=== PATIENT | female | born 1990 ===

== ENCOUNTER 2020-07-19 08:08 | Outpatient (REF) | payer OTHER, SELFPAY ==
[2020-07-20 09:46] LABS: BV Int Neg Control Negative (Negative); BV Int Pos Control Positive (Positive)
[2020-07-21 13:03] LABS: C. trachomatis RNA TMA NOT DETECTED; N. gonorrhoeae RNA TMA NOT DETECTED
[2020-07-24 09:57] LABS: HPV 16 RNA NOT DETECTED (NOT DETECTED); HPV mRNA E6/E7 rflx Detected (Not Detected)
== END 2020-07-19 08:09 | disposition home or self-care (01) ==
LOC: HO.LAB 08:08
PROVIDERS: PCP Internal Medicine; Visit Provider Advanced Practice Midwife
DX: Z01.419 Encounter for gynecological examination (general) (routine) without abnormal findings (principal); Z20.2 Contact with and (suspected) exposure to infections with a predominantly sexual mode of transmission; Z30.41 Encounter for surveillance of contraceptive pills
CPT/HCPCS: 87480; 87491; 87510; 87591; 87624; 87625; 87660; 88141; 88142

== ENCOUNTER → 2021-08-11 14:15 | Outpatient (BNVA) | payer OTHER, SELFPAY | PROVIDERS: Visit Provider Advanced Practice Midwife ==

== ENCOUNTER 2022-03-20 09:14 | Outpatient (REF) | payer OTHER, SELFPAY ==
[2022-03-20 11:19] LABS: MANUAL DIFF FLAG NO
[2022-03-20 11:29] LABS: Basophils Percent Auto 0.7 % (0-2); Eosinophils Absolute Auto 0.1 X10*3/uL (0.0-0.4); Eosinophils Percent Auto 1.6 % (0-4); Hemoglobin 13.3 g/dl (12.0-16.0); Imm Gran Abs Auto 0.01 X10*3/uL (0.00-0.03); Imm Gran Pct Auto 0.2 % (0.0-0.4); Lymphocytes Absolute Auto 1.6 X10*3/uL (1.2-4.9); Lymphocytes Percent Auto 36.7 % (20-40); Mean Corpuscular HGB Conc 33.3 g/dl (31.0-35.0); Mean Corpuscular Volume 87.3 fL (80.0-98.0); Mean Platelet Volume 11.5 fL (9.4-12.3); Monocytes Absolute Auto 0.4 X10*3/uL (0.1-1.2); Monocytes Percent Auto 8.7 % (2-11); Neutrophils Absolute Auto 2.3 x10*3/uL (2.0-8.3); Neutrophils Percent Auto 52.1 % (45-73); Platelet Count 239 X10*3/uL (160-400); Red Blood Count 4.58 X10*6/uL (4.20-5.50); Red Cell Distribution Width 12.5 % (11.0-16.0); White Blood Count 4.4 X10*3/uL (4.8-10.8)
[2022-03-20 11:58] LABS: Cholesterol 211 mg/dL; Glucose Fasting 99 mg/dL (60-99); HDL Cholesterol 102 mg/dL; LDL Cholesterol Calculated 97 mg/dl; Triglycerides 63 mg/dL
[2022-03-20 12:07] LABS: TSH reflex Free T4 0.42 uIU/mL (0.32-4.0)
== END 2022-03-20 09:15 | disposition home or self-care (01) ==
LOC: HO.HMGCLDS 09:14
PROVIDERS: PCP Internal Medicine; Visit Provider Internal Medicine
DX: Z00.00 Encounter for general adult medical examination without abnormal findings (principal); N92.1 Excessive and frequent menstruation with irregular cycle
CPT/HCPCS: 36415; 80061; 82947; 84443; 85025

== ENCOUNTER 2022-03-22 08:34 | Outpatient (REF) | payer OTHER, SELFPAY ==
[2022-03-23 08:41] LABS: CT PCR NOT DETECTED (Not Detect.); NG PCR NOT DETECTED (Not Detect.)
[2022-03-23 10:48] LABS: BV Int Neg Control Negative (Negative); BV Int Pos Control Positive (Positive)
[2022-03-27 10:12] LABS: HPV 16 RNA NOT DETECTED (NOT DETECTED); HPV mRNA E6/E7 rflx Detected (Not Detected)
== END 2022-03-22 08:35 | disposition home or self-care (01) ==
LOC: HO.LAB 08:34
PROVIDERS: Visit Provider Advanced Practice Midwife
DX: Z01.419 Encounter for gynecological examination (general) (routine) without abnormal findings (principal); N92.6 Irregular menstruation, unspecified; Z20.2 Contact with and (suspected) exposure to infections with a predominantly sexual mode of transmission
CPT/HCPCS: 87480; 87491; 87510; 87591; 87624; 87625; 87660; 88142

== ENCOUNTER 2022-05-10 11:32 | Outpatient (REF) | payer OTHER, SELFPAY ==
--- NOTE | ~2022-05-10 | US_ITS ---
EXAMINATION: US PELVIS CLINICAL INFORMATION: Irregular menstruation. COMPARISON: None. TECHNIQUE: Ultrasound of the pelvis is performed using both transabdominal and transvaginal transducers along with Doppler. Transvaginal imaging is performed due to inadequate visualization transabdominally. FINDINGS: The uterus is anteverted and measures 6.9 x 3.3 x 4.7 cm. There are 2 focal uterine lesions suggestive of fibroids measuring 1.8 x 1.7 x 1.8 cm in the anterior uterine body and 2.2 x 1.8 x 2 cm in the left upper uterine body or fundus/cornual region. There is a third 1 x 1.2 x 1.6 cm hypoechoic solid lesion in the left adnexa which appears to have a stalk that communicates with the left uterus questionable for a pedunculated fibroid. Differential would include left adnexal or fallopian tube lesion. Endometrial thickness measures 1.3 cm. The cervix is heterogeneous appearing with areas of shadowing. Clinical correlation i.e. has patient had a previous surgical procedure/LEEP procedure. The ovaries are normal appearing. The right ovary measures 1.9 x 1.3 x 1.5 cm. The left ovary measures 3.2 x 1.3 x 1.2 cm. There is a small amount of fluid in the pelvis. I US/US pelvic and transvaginal IMPRESSION: Uterine fibroids. 1 x 1.2 x 1.6 cm solid hypoechoic left adnexal lesion questionable for a pedunculated fibroid. Differential would include left adnexal or fallopian tube lesion. Heterogeneous appearance to the cervix, question postprocedural. Clinical correlation recommended.
== END 2022-05-10 11:33 | disposition home or self-care (01) ==
LOC: HO.US 11:32
PROVIDERS: Visit Provider Advanced Practice Midwife
DX: N92.6 Irregular menstruation, unspecified (principal)
CPT/HCPCS: 76830; 76856

== ENCOUNTER 2022-05-11 08:54 | Outpatient (REF) | payer OTHER, SELFPAY | END 2022-05-11 08:55 | disposition home or self-care (01) | LOC: HO.LNP 08:54 | PROVIDERS: PCP Internal Medicine; Visit Provider Obstetrics & Gynecology | DX: Z32.02 Encounter for pregnancy test, result negative (principal); A63.0 Anogenital (venereal) warts; B97.7 Papillomavirus as the cause of diseases classified elsewhere | CPT/HCPCS: 57454; 81025; 88305; 88342; 88360 ==

== ENCOUNTER → 2022-05-25 13:53 | Outpatient (BNVA) | payer OTHER, SELFPAY | PROVIDERS: PCP Internal Medicine; Visit Provider Obstetrics & Gynecology | DX: N87.0 Mild cervical dysplasia (principal) | CPT/HCPCS: 99212 ==

== ENCOUNTER → 2022-05-31 08:52 | Outpatient (BNVA) | payer OTHER, SELFPAY | PROVIDERS: PCP Internal Medicine; Visit Provider Advanced Practice Midwife | DX: Z71.2 Person consulting for explanation of examination or test findings (principal); D21.9 Benign neoplasm of connective and other soft tissue, unspecified; N92.6 Irregular menstruation, unspecified; Z30.41 Encounter for surveillance of contraceptive pills | CPT/HCPCS: 81025; 99212 ==

== ENCOUNTER 2022-07-12 13:59 | Outpatient (REF) | payer OTHER, SELFPAY ==
--- NOTE | ~2022-07-12 | US_ITS ---
EXAMINATION: US PELVIS CLINICAL INFORMATION: Reason for Exam D21.9 - Benign neoplasm of connective and other soft tissue, unspecified. Follow left adnexal lesion. COMPARISON: Previous exam April 2022 TECHNIQUE: Ultrasound of the pelvis is performed using both transabdominal and transvaginal transducers along with Doppler. Transvaginal imaging is performed due to inadequate visualization transabdominally. FINDINGS: The uterus is anteverted and measures 7.6 x 4.4 x 3.7 cm in dimension. Endometrial thickness measures 0.7 cm. There are 3 uterine fibroids. These fibroids measure 1.2 x 1.2 x 1 cm in the right upper uterine body or fundus adjacent to the endometrium, 1.5 cm in the left upper uterine body or fundus adjacent to the endometrium, and 0.5 x 0.5 x 0.4 cm in the anterior uterine body adjacent to the endometrium. There is stable heterogeneous appearance of the cervix with areas of shadowing and internal echoes in the endocervical canal. The right ovary measures 1.3 x 2.1 x 2 cm and is normal-appearing. The left ovary measures 1.3 x 2 x 1 cm. There is a 1.0 x 1.6 x 1.3 cm complex cystic lesion in the left adnexa in between the left side of the uterus and left ovary. This is slightly decreased from previous exam when this measured 1.8 x 1.7 x 1.8 cm and appears less solid and more cystic. There is no fluid in the pelvis. US/US pelvic and transvaginal IMPRESSION: Uterine fibroids. Heterogeneous appearance to the cervix similar to previous exam. Slight interval decrease in size in the now complex cystic left adnexal lesion measuring 1 x 1.6 x 1.3 cm compared to April 2022 exam.
== END 2022-07-12 14:00 | disposition home or self-care (01) ==
LOC: HO.US 13:59
PROVIDERS: Visit Provider Advanced Practice Midwife
DX: D21.9 Benign neoplasm of connective and other soft tissue, unspecified (principal)
CPT/HCPCS: 76830; 76856

== ENCOUNTER → 2022-09-26 11:08 | Outpatient (BNVA) | payer OTHER, SELFPAY | PROVIDERS: PCP Internal Medicine; Visit Provider Advanced Practice Midwife | DX: Z71.2 Person consulting for explanation of examination or test findings (principal); N83.292 Other ovarian cyst, left side; D25.9 Leiomyoma of uterus, unspecified; Z30.09 Encounter for other general counseling and advice on contraception | CPT/HCPCS: 99212 ==

== ENCOUNTER 2022-10-17 08:21 | Outpatient (REF) | payer OTHER, SELFPAY ==
--- NOTE | ~2022-10-17 | MR_ITS ---
EXAMINATION: MR PELVIS WITHOUT AND WITH CONTRAST CLINICAL INFORMATION: Left ovarian cyst. COMPARISON: Previous pelvic ultrasounds April and June 2022. TECHNIQUE: Sagittal, axial, and coronal sequences through the pelvis with and without contrast. Patient received 6.5 mL Gadavist IV contrast. FINDINGS: The uterus is anteverted and measures 6.8 x 3.5 x 4.9 cm in sagittal, AP, and transverse dimension. There are 2 focal low signal enhancing uterine lesions in the anterior fundus and uterine body measuring 1.9 x 2.5 x 2.0 and 1.6 cm suggestive of uterine fibroids. Endometrial thickness is normal measuring 2 mm. The junctional zone does not appear thickened. The cervix is normal appearing. The ovaries are normal. There is a 1.0 x 1.6 x 1.0 cm left adnexal lesion in between the uterus and left ovary. This is intermediate signal on T1-weighted sequences, low signal on T2-weighted sequences and demonstrates mild enhancement. Differential would include a pedunculated uterine fibroid, broad ligament fibroid and adnexal fibrous tumor. This is best appreciated coronal T2 image 16 series 7 and pre and postcontrast image #20 series 8 and 9. Trace fluid in the pelvis. Bladder is not optimally distended. Visualized bowel is normal. No ascites or adenopathy. No hernia. Normal bony structures. MR/MR pelvis wo/w con IMPRESSION: 1. Left 1.6 cm left adnexal lesion. Differential would include a pedunculated uterine fibroid, broad ligament fibroid and left adnexal fibrous tumor. 2. Uterine fibroids.
[2022-10-18 04:41] LABS: Syphilis Screen Nonreactive (Nonreactive)
[2022-10-18 05:56] LABS: HBc Num1 0.07 S/CO (0.00-0.79); HIV AB/AG Nonreactive (Nonreactive); HIV Num 1 0.06 S/CO (0.00-0.99); Hepatitis B Core Antibody Nonreactive (Nonreactive); ~HepC Num1 0.08 S/CO (0.00-0.79); ~Hepatitis C Antibody Nonreactive (Nonreactive)
[2022-10-19 11:54] LABS: CA-125 4 U/mL (<35)
== END 2022-10-17 08:22 | disposition home or self-care (01) ==
LOC: HO.MRI 08:21
PROVIDERS: PCP Internal Medicine; Visit Provider Advanced Practice Midwife
DX: N83.292 Other ovarian cyst, left side (principal); D25.9 Leiomyoma of uterus, unspecified; Z20.2 Contact with and (suspected) exposure to infections with a predominantly sexual mode of transmission
CPT/HCPCS: 36415; 72197; 86304; 86704; 86780; 86803; 87389; A9585

== ENCOUNTER → 2022-11-09 07:51 | Outpatient (BNVA) | payer OTHER, SELFPAY | PROVIDERS: PCP Internal Medicine; Visit Provider Advanced Practice Midwife | DX: Z71.2 Person consulting for explanation of examination or test findings (principal); R10.2 Pelvic and perineal pain; N94.89 Other specified conditions associated with female genital organs and menstrual cycle | CPT/HCPCS: 99212 ==

== ENCOUNTER 2023-02-14 13:42 | Outpatient (REF) | payer OTHER, SELFPAY ==
--- NOTE | ~2023-02-14 | US_ITS ---
EXAMINATION: US PELVIS CLINICAL INFORMATION: Complex ovarian cyst COMPARISON: Pelvic ultrasound 07/12/2022, pelvic ultrasound 05/10/2022, MRI pelvis 10/17/2022 TECHNIQUE: Ultrasound of the pelvis is performed using both transabdominal and transvaginal transducers along with Doppler. Transvaginal imaging is performed due to inadequate visualization transabdominally. FINDINGS: Uterus: The uterus is anteverted and measures 6.7 x 4.2 x 5.5 cm. There are multiple fibroids includin.7 x 1.7 x 1.4 cm right anterior fundal fibroid (previously 1.2 x 1.2 x 1.0 cm). 1.5 x 1.5 x 1.4 cm left fundal fibroid (previously measured 1.5 x 1.5 x 1.5 cm). 1.4 x 1.2 x 2.0 cm pedunculated fibroid to the left of the uterus (previously measured 1.0 x 1.6 x 1.3 cm). 0.6 x 0.6 x 0.6 cm anterior fibroid adjacent to the endometrium (previously measured 0.5 x 0.5 x 0.4 cm). The endometrial thickness is 0.6 mm. The endometrial stripe is displaced by fibroids. Adnexa: Right ovary measures 2.5 x 1.5 x 1.6 cm. Volume 0.1 mL. The right ovary contains a 1.3 x 1.3 x 1.4 cm simple cyst. This is benign and no follow-up imaging is recommended. The left ovary is not seen. No free fluid within the cul-de-sac. US/US pelvic and transvaginal IMPRESSION: 1. Uterine fibroids. 2. 2.0 cm pedunculated fibroid to the left of the uterus. This has been previously been described as a left adnexal lesion. 3. Normal right ovary. 4. Left ovary is not seen.
== END 2023-02-14 13:43 | disposition home or self-care (01) ==
LOC: HO.US 13:42
PROVIDERS: PCP Internal Medicine; Visit Provider Obstetrics & Gynecology Gynecologic Oncology
DX: N83.209 Unspecified ovarian cyst, unspecified side (principal)
CPT/HCPCS: 76830; 76856

== ENCOUNTER 2023-03-28 08:20 | Outpatient (AMB) | payer OTHER, SELFPAY ==
--- NOTE | 2023-03-28 08:20 | MHC.OFFVIS ---
Intake Vital Signs 03/28/23 08:21 Height 5 ft 2 in Weight 146 lb BMI 26.7 BP 114/76 Intake Visit Reasons: Annual Intake Note: The patient agreed to use of a medical coding auditor during this encounter. Scribed for MAULIK Cantu by Mikayla Sarabia medical coding auditor, on 03/28/2023 at 8:37am EST. Enforcement Officer: Enforcement Officer Present (Mary) Allergies No Known Allergies Allergy (Verified 03/28/23 08:21) Is last menstrual period known: Yes Last menstrual period: 03/26/23 HPI HPI Comments History of Present Illness Details She is a premenopausal woman presenting for annual exam. She admits to eating healthy and tries to stay active with exercise. Currently not sexually active. She was on Jolessa for cycle control but stopped due to insurance issues and now wants to take a break and see what happens. She is also not worried about and plans to go back onto them if becomes sexually active. Hx of of HMB with cramping. Reports break through bleeding every 2 weeks with last BC. Denies vaginal itching and irritation. STD screening offered; she declines. Denies family hx of breast, colon and ovarian cancer. Reports Rocky repeated her pap during the consult for the pelvic mass. Pap results are not available today. She denies any contraindications to control such as: migraines with aura, history of DVT or pulmonary emboli, high blood pressure, liver disease, thrombolic disorders, Lupus, +LILI, or smoking. [facility] Medical History (Updated 03/28/23 @ 12:16 by Shannon Fleming CNM) Migraine without aura Uterine fibroid Surgical History No pertinent past surgical history Family History Father High cholesterol Mother Type 2 diabetes mellitus Sister No problems noted. Sister No problems noted. Sister No problems noted. 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 [employer] Sexual orientation: Straight/Heterosexual Gender identity: Female Cognitive needs: No Hearing needs: No Vision needs: No Female Reproductive History Menstrual Age of Menarche: 11 Duration of menses: 3-5 days Date of last menstrual period: 03/26/23 Total pregnancies: 0 Date of last pap smear: 03/22/22 (+hpv) History of abnormal pap smear: Yes (07/18 +hpv 05/20 colpo LG 1) Physical Exam Vital Signs: Last Vital Signs BP 114/76 03/28/23 08:21 BMI result Body Mass Index 26.7 Const General: cooperative, healthy appearing, no acute distress, well developed and alert Orientation/consciousness: patient oriented x3 HEENT Head: Yes normal to inspection Eyes General: appearance normal, both eyes and all related structures Neck Neck: Yes normal visual inspection Thyroid: Thyroid normal Chest Chest palpation & inspection: normal inspection of the chest Breast/axilla inspection: normal inspection of the breasts (no puckering, dimpling, peau de orange, retraction, discharge, masses) Breast/axilla palpation: normal palpation of the breasts Resp Effort & Inspection: normal respiratory effort GI Inspection: Yes normal to inspection Palpation (GI): Soft to palpation (to palpation) Rectal Exam - Female: deferred General: Yes bladder normal to inspection External Female Exam: normal external appearance and normal appearance of the urethra Speculum Exam - Vagina: normal appearance of the vagina, normal palpation and normal vaginal discharge Speculum Exam - Cervix: normal appearance of the cervix and normal palpation Bimanual exam- vagina & uterus: normal palpation and normal palpation Bimanual Exam- Adnexa, other: normal adnexae and no masses Skin General skin exam: no rashes or lesions noted Neuro General: patient oriented x3 Cognition (Neuro): normal cognition Extrem General: Yes normal to inspection Psych Attitude: cooperative Thought process: Normal thought process present Results Reviewed Results Reviewed: EXAMINATION:? US PELVIS CLINICAL INFORMATION:? Complex ovarian cyst COMPARISON: Pelvic ultrasound 07/12/2022, pelvic ultrasound 05/10/2022, MRI pelvis 10/17/2022 TECHNIQUE: Ultrasound of the pelvis is performed using both transabdominal and transvaginal transducers along with Doppler. Transvaginal imaging is performed due to inadequate visualization transabdominally. FINDINGS: Uterus: The uterus is anteverted and measures 6.7 x 4.2 x 5.5 cm.? There are multiple fibroids includin.7 x 1.7 x 1.4 cm right anterior fundal fibroid (previously 1.2 x 1.2 x 1.0 cm). 1.5 x 1.5 x 1.4 cm left fundal fibroid (previously measured 1.5 x 1.5 x 1.5 cm). 1.4 x 1.2 x 2.0 cm pedunculated fibroid to the left of the uterus (previously measured 1.0 x 1.6 x 1.3 cm). 0.6 x 0.6 x 0.6 cm anterior fibroid adjacent to the endometrium (previously measured 0.5 x 0.5 x 0.4 cm). The endometrial thickness is 0.6 mm. The endometrial stripe is displaced by fibroids. Adnexa: Right ovary measures 2.5 x 1.5 x 1.6 cm. Volume 0.1 mL. The right ovary contains a 1.3 x 1.3 x 1.4 cm simple cyst. This is benign and no follow-up imaging is recommended. The left ovary is not seen. No free fluid within the cul-de-sac. US/US pelvic and transvaginal IMPRESSION: ? 1. Uterine fibroids. 2. 2.0 cm pedunculated fibroid to the left of the uterus. This has been previously been described as a left adnexal lesion. 3. Normal right ovary. 4. Left ovary is not seen. Assessment & Plan Assessment & Plan (1) Encounter for well woman exam: Code(s): Z01.419 - Encounter for gynecological examination (general) (routine) without abnormal findings Plan: Discussed: Current recommendations for pap smears per ASCCP guidelines Breast awareness and periodic self breast exams. Maintaining a healthy lifestyle including a well balanced diet and routine exercise. Encouraged to use condoms for STD and prevention if become sexually active. Encouraged patient to sign up for patient portal. All of her questions and concerns were addressed to the best of my ability. RTO in one year for AG. (2) Encounter to discuss test results: Code(s): Z71.2 - Person consulting for explanation of examination or test findings Plan: Discussed: US findings of: multiple uterine fibroids. All of her questions and concerns were addressed to the best of my ability. (3) Uterine fibroid: Code(s): D25.9 - Leiomyoma of uterus, unspecified Plan: Leiomyoma: common pelvic neoplasm. Differential diagnosis-may include leiomyosarcoma which is a rare uterine sarcoma 3-7/100,000, difficult to distinguish from fibroids on ultrasound from uterine sarcoma's. Unlikely any single test will have a highly positive predictive value. Hysterectomy is not recommended for sole purpose of excluding malignant neoplasm. Report any PMB/AUB, pelvic pressure, bloating, or pain. Consult for surgical exploration verses expectant management offered. Expectant management follow up in 6 months, then yearly for stability. (4) Encounter for surveillance of contraceptive pills: Code(s): Z30.41 - Encounter for surveillance of contraceptive pills Plan: Rx ordered. She was instructed to go to ER if she develops loss of vision, severe headache that does not resolve, chest pain, difficulty breathing, abdominal pain, or pain or tenderness in extremity. Call the office with any concerns. Medications: Refilled levonorgestrel-ethinyl estrad 0.15 mg-30 mcg (91) (Jolessa) 1 tab PO DAILY 91 ea 4RF Coding Level of Care Code Est Pt Prev Care 18-39y(16237) Diagnoses Encounter for well woman exam Z01.419 Encounter to discuss test results Z71.2 Uterine fibroid D25.9 Encounter for surveillance of contraceptive pills Z30.41
[2023-03-28 08:21] VITALS: BP 114/76; BMI 26.7
== END 2023-03-28 09:04 | disposition home or self-care (01) ==
LOC: HO.HWS 08:20
PROVIDERS: PCP Internal Medicine; Visit Provider Advanced Practice Midwife
DX: Z01.419 Encounter for gynecological examination (general) (routine) without abnormal findings (principal); Z71.2 Person consulting for explanation of examination or test findings; D25.9 Leiomyoma of uterus, unspecified; Z30.41 Encounter for surveillance of contraceptive pills
CPT/HCPCS: 99395

== ENCOUNTER → 2023-03-28 08:20 | Outpatient (BNVA) | payer OTHER, SELFPAY | PROVIDERS: PCP Internal Medicine; Visit Provider Advanced Practice Midwife ==

== ENCOUNTER 2023-04-03 08:04 | Outpatient (AMB) | payer OTHER, SELFPAY ==
[2023-04-03 08:06] VITALS: BP 122/70; PULSE 54; O2SAT 96; BMI 26.9
--- NOTE | 2023-04-03 08:06 | MHC.PC.OV ---
Vital Signs 04/03/23 08:06 Height 5 ft 2 in Weight 147 lb BMI 26.9 BP 122/70 Blood Pressure Location Rt brachial Position Sitting Pulse 54 Pulse Oximetry (%) 96 Oxygen Delivery Method Room Air Intake Visit Reasons: PE Intake Note: Patient is here today for PE Is last menstrual period known: Yes Last menstrual period: 03/26/23 Allergies No Known Allergies Allergy (Verified 04/03/23 08:24) Medication List - Last Reconciled 04/03/23 by Ryann Alvares MD cetirizine (All Day Allergy (cetirizine)) 10 mg PO DAILY PRN Tobacco use date assessed: 04/03/23 Dental Screening Dental Screen Date: 04/03/23 Did you have a dental visit in the last 12 months?: Yes Did you have a dental problem in the last 6 months where you did not have access to dental care?: Yes Was dental information given to patient?: Patient has dentist HPI PE HPI Details 33-year-old lady here today for physical exam. She is currently goes to [facility] for her routine Pap and pelvic exam, and has been referred to [facility] for her uterine fibroids and patient states she had her Pap done recently there with normal findings. She previously was placed on control pills to control her bleeding from her fibroids, but this was not very helpful, currently not on any medication at this time. Still having heavy menstrual bleed. Otherwise, she has been feeling well . She gets her flu vaccine from her work, gets it every year, and states that she also had her COVID booster recently, as well as her Tdap prior to going to school. [facility] Medical History (Updated 04/03/23 @ 08:44 by Ryann Alvares MD) Dysplasia of cervix, low grade (LG 1) HPV (human papilloma virus) infection Migraine without aura Seasonal allergies Uterine fibroid Surgical History No pertinent past surgical history Family History Father High cholesterol Mother Type 2 diabetes mellitus Sister No problems noted. Sister No problems noted. Sister No problems noted. 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 1. Little interest or pleasure in doing things: not at all 2. Feeling down, depressed, or hopeless: not at all 3. Trouble falling or staying asleep, or sleeping too much: not at all 4. Feeling tired or having little energy: several days 5. Poor appetite or overeating: not at all 6. Feeling bad about yourself - or that you are a failure or have let yourself or your family down: not at all 7. Trouble concentrating on things, such as reading the newspaper or watching television: not at all 8. Moving or speaking so slowly that other people could have noticed. Or the opposite - being so fidgety or restless that you have been moving around a lot more than usual: not at all 9. Thoughts that you would be better off or of hurting yourself in some way: not at all Total score: 1 Depression Screening Interpretation: Negative 88692 - PHQ-9 Billing: Yes Source: Developed by Drs. Dwayne Santiago, Stephanie Larose, López King and colleagues, with an educational shira from [employer]. Thrive Questionnaire Date Thrive assessed: 04/03/23 I am a: Patient What is your living situation today?: I have a steady place to live Within the past 12 months, did the food you bought not last and you didn't have the money to get more?: Never true Within the past 12 months, did you worry whether your food would run out before you got money to buy more?: Never true Do you have trouble paying for medicines?: No Do you have trouble getting transportation to medical appointments?: No Do you have trouble paying your heating and electricity bill?: No Do you have trouble taking care of your child, family member or friend?: No Do you have trouble with day-to-day activities such as bathing, preparing meals, shopping, managing finances, etc.?: No Are you currently unemployed and looking for a job?: No Are you interested in more education?: Yes Please select the resources that you would like help with: Education CED-7 AMB Questionnaire CED-7 Date CED - 7 assessed: 04/03/23 Feeling nervous, anxious, or on edge: 0 = Not at all Not being able to stop or control worryin = Not at all Worrying too much about different things: 1 = Several days Trouble relaxin = Not at all Being so restless that it is hard to sit still: 0 = Not at all Becoming easily annoyed or irritable: 0 = Not at all Feeling afraid as if something awful might happen: 0 = Not at all Total CED-7 score (0-4 normal; 5-9 mild; 10-14 moderate; 15-21 severe): 1 Source: Developed by Drs. Dwayne Santiago, Stephanie Larose, López King and colleagues, with an educational shira from [employer]. CED-7 Assessment Billing CED-7 Assessment Tool: CED-7 Assessment 49232 Review of Systems Const Denies body aches, Denies fatigue, Denies fever(s) and Denies weakness Eyes Denies change in vision, Denies eye discharge and Denies itchy eyes ENT Denies dizziness, Denies nasal congestion, Denies nasal discharge and Denies sore throat Card Denies chest pain, Denies lightheadedness, Denies palpitations and Denies dyspnea Resp Denies chest congestion, Denies cough, Denies dyspnea and Denies wheezing GI Denies abdominal pain, Denies change in bowel habits and Reports heartburn (Occasional with eating spicy food, takes Tums as needed) Reports as per HPI, Denies hematuria, Denies urinary frequency, Denies dysuria, Denies urinary urgency and Denies vaginal discharge Musc Reports no additional complaints Skin/Breast Denies breast pain, Denies breast mass, Denies lesions and Denies rash Neuro Reports as per HPI, Denies dizziness and Denies weakness Psych Reports no additional complaints Endo Denies fatigue, Denies polydipsia, Denies polyuria and Denies palpitations Tomasz/Lymph Denies easy bruising Aller/Immun Denies itchy eyes, Reports seasonal rhinorrhea (Takes cetirizine as needed) and Denies wheezing Physical exam (Primary Care) Vital Signs: Last Vital Signs Pulse 54 04/03/23 08:06 BP 122/70 04/03/23 08:06 Pulse Ox 96 04/03/23 08:06 Oxygen Delivery Method Room Air 04/03/23 08:06 BMI result Body Mass Index 26.9 Tobacco/Smoking Status: Tobacco use Status Tobacco use date assessed 04/03/23 04/03/23 08:19 Patient Tobacco Use Status Never used Tobacco 04/03/23 08:09 e-Cigarette/Vaping Use Currently Using 04/03/23 08:19 PHQ-9: PHQ-9 Score PHQ-9: Total score 1 04/03/23 08:32 Depression Screening Interpretation: Negative Thrive Assessment: Date of Thrive Assessment Date Thrive assessed 04/03/23 04/03/23 08:22 Const General: healthy appearing, comfortable and no acute distress Nutritional Appearance: average body habitus Orientation/consciousness: patient oriented x3 Limitations: no limitations HENMT Head: Yes normocephalic Ears: hearing grossly normal bilaterally, TM's normal bilaterally and EAC's normal General nose exam: Normal external nose present Face and sinus: Yes normal facial exam and Yes face symmetric Mouth: Normal oral and palatal mucosa present, tongue normal, oropharynx normal and moist mucous membranes Eyes General: appearance normal, both eyes and all related structures Neck Neck: Yes full ROM, Yes no lymphadenopathy and Yes supple Thyroid: Thyroid normal Chest Chest palpation & inspection: normal inspection of the chest Breast/axilla inspection: normal inspection of the breasts (Bilateral nipple rings) Breast/axilla palpation: normal palpation of the breasts Resp Effort & Inspection: normal respiratory effort and able to speak in complete sentences Auscultation: clear to auscultation bilaterally Cardio Palpation: normal PMI Rate: regular rate Rhythm: regular rhythm Heart sounds: S1 normal heart sound present and S2 normal heart sound present GI Inspection: Yes normal to inspection Palpation (GI): Soft to palpation, nontender, no guarding, no hepatomegaly and no masses Percussion: Yes normal to percussion Auscultation: normal bowel sounds General: Yes no CVA tenderness and Yes deferred Back/Spine/Pelvis Back: no CVA tenderness Cervical Spine: normal cervical lordosis Thoracic/Lumbar Spine: thoracic and lumbar spine normal to inspection Skin General skin exam: no rashes or lesions noted Neuro General: patient oriented x3, gait normal, tone normal, moves all extremities, Normal light touch and pain sensation, no focal motor deficits and CN's II-XI intact bilaterally Cognition (Neuro): normal cognition Gait exam (Neuro): Normal gait present Extrem General: Yes normal to inspection, Yes full ROM, Yes no joint enlargement, Yes no pedal edema and Yes normal gait Psych Appearance: grossly normal and well kempt Mental Status: mental status grossly normal Speech and movement: Normal speech and movement present Affect: normal affect Attitude: cooperative Thought process: Normal thought process present Assessment and Plan Assessment & Plan (1) Uterine fibroid: Code(s): D25.9 - Leiomyoma of uterus, unspecified Plan: Currently followed by [facility] (2) Seasonal allergies: Code(s): J30.2 - Other seasonal allergic rhinitis Plan: Takes cetirizine as needed (3) Annual visit for general adult medical examination with abnormal findings: Code(s): Z00.01 - Encounter for general adult medical examination with abnormal findings Plan: Will check appropriate labs. Recommended dental visit every 6 months and regular eye exams, at least every 2 years. Take adequate calcium in diet and vitamin-D 3 at 2000 IU per cap once a day, in addition to weight-bearing exercises to help maintain good muscle tone and weight control. Instructed to do self-breast exam, and recommended to get yearly mammogram, starting at age 40. Patient states that she is up-to-date with her COVID vaccine including her booster, gets her flu shot at work, and states that she is already had her Tdap prior to going to school. (4) Heavy menstrual bleeding: Code(s): N92.0 - Excessive and frequent menstruation with regular cycle Plan: Will check CBC, currently being followed by OBGYN Orders: Orders Complete Blood Count Auto Diff Today D25.9 - Leiomyoma of uterus, unspecified Alanine Aminotransferase Today D25.9 - Leiomyoma of uterus, unspecified, J30.2 - Other seasonal allergic rhinitis, N92.0 - Excessive and frequent menstruation with regular cycle, Z00.01 - Encounter for general adult medical examination with abnormal findings Aspartate Amino Transferase Today D25.9 - Leiomyoma of uterus, unspecified, J30.2 - Other seasonal allergic rhinitis, N92.0 - Excessive and frequent menstruation with regular cycle, Z00.01 - Encounter for general adult medical examination with abnormal findings Basic Metabolic Panel Fasting Today D25.9 - Leiomyoma of uterus, unspecified, J30.2 - Other seasonal allergic rhinitis, N92.0 - Excessive and frequent menstruation with regular cycle, Z00.01 - Encounter for general adult medical examination with abnormal findings Hemoglobin A1c Today D25.9 - Leiomyoma of uterus, unspecified, J30.2 - Other seasonal allergic rhinitis, N92.0 - Excessive and frequent menstruation with regular cycle, Z00.01 - Encounter for general adult medical examination with abnormal findings Lipid Panel Today D25.9 - Leiomyoma of uterus, unspecified, J30.2 - Other seasonal allergic rhinitis, N92.0 - Excessive and frequent menstruation with regular cycle, Z00.01 - Encounter for general adult medical examination with abnormal findings Vitamin D 25-OH Total Today D25.9 - Leiomyoma of uterus, unspecified, J30.2 - Other seasonal allergic rhinitis, N92.0 - Excessive and frequent menstruation with regular cycle, Z00.01 - Encounter for general adult medical examination with abnormal findings Coding Level of Care Code Est Pt Prev Care 18-39y(67753) Diagnoses Uterine fibroid D25.9 Seasonal allergies J30.2 Annual visit for general adult medical examination with abnormal findings Z00.01 Heavy menstrual bleeding N92.0 Additional Codes CED-7 Assessment Billing - CED-7 Assessment Tool: CED-7 Assessment 07115 ([id number])
== END 2023-04-03 09:55 | disposition home or self-care (01) ==
PROVIDERS: Visit Provider Internal Medicine
DX: D25.9 Leiomyoma of uterus, unspecified (principal); J30.2 Other seasonal allergic rhinitis; Z00.01 Encounter for general adult medical examination with abnormal findings; N92.0 Excessive and frequent menstruation with regular cycle
CPT/HCPCS: 99395

== ENCOUNTER 2023-04-03 08:42 | Outpatient (REF) | payer OTHER, SELFPAY ==
[2023-04-03 11:20] LABS: MANUAL DIFF FLAG NO
[2023-04-03 11:26] LABS: Basophils Percent Auto 0.2 % (0-2); Eosinophils Absolute Auto 0.1 X10*3/uL (0.0-0.4); Eosinophils Percent Auto 1.3 % (0-4); Hemoglobin 12.2 g/dl (12.0-16.0); Imm Gran Abs Auto 0.01 X10*3/uL (0.00-0.03); Imm Gran Pct Auto 0.2 % (0.0-0.4); Lymphocytes Absolute Auto 1.5 X10*3/uL (1.2-4.9); Lymphocytes Percent Auto 28.8 % (20-40); Mean Corpuscular Hemoglobin 29.5 pg (27.0-33.0); Mean Corpuscular Volume 89.4 fL (80.0-98.0); Mean Platelet Volume 11.5 fL (9.4-12.3); Monocytes Absolute Auto 0.4 X10*3/uL (0.1-1.2); Monocytes Percent Auto 7.8 % (2-11); Neutrophils Absolute Auto 3.3 x10*3/uL (2.0-8.3); Neutrophils Percent Auto 61.7 % (45-73); Platelet Count 211 X10*3/uL (160-400); Red Blood Count 4.14 X10*6/uL (4.20-5.50); Red Cell Distribution Width 12.5 % (11.0-16.0); White Blood Count 5.3 X10*3/uL (4.8-10.8)
== END 2023-04-03 08:43 | disposition home or self-care (01) ==
LOC: HO.HMGCLDS 08:42
PROVIDERS: PCP Internal Medicine; Visit Provider Internal Medicine
DX: D25.9 Leiomyoma of uterus, unspecified (principal)
CPT/HCPCS: 36415; 85025

== ENCOUNTER → 2024-04-23 08:06 | Outpatient (BNVA) | payer OTHER, SELFPAY | PROVIDERS: PCP Internal Medicine; Visit Provider Advanced Practice Midwife ==

== ENCOUNTER 2024-04-29 07:42 | Outpatient (AMB) | payer OTHER, SELFPAY ==
--- NOTE | 2024-04-29 07:49 | A.OFFVIS_ITS ---
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 Doing well with concerns: History of fibroids, felt she has gained weight in her lower abdomen, also reports her cycles can be closer anywhere from Q 21-28 days. Not on control uses withdrawal method. Considering a future in a year or 2. Recently treated for yeast infection feels her symptoms improved. She tries to eat healthy and stays active with exercise. Currently is sexually active. She denies vaginal itching and irritation. STI screening offered; she accepts. Denies family history of breast, ovarian or colon cancer. Last pap smear LG 1 on biopsy history of HPV positive. [facility] Medical History Seasonal allergies Uterine fibroid Dysplasia of cervix, low grade (LG 1) HPV (human papilloma virus) infection Migraine without aura Surgical History No pertinent past surgical history Family History Father High cholesterol Mother Type 2 diabetes mellitus Sister No problems noted. Sister No problems noted. Sister No problems noted. 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[employer] Sexual orientation: Straight/Heterosexual Gender identity: Female Cognitive needs: No Hearing needs: No Vision needs: No Female Reproductive History Menstrual Age of Menarche: 11 Date of last menstrual period: 04/23/24 control method: none Total pregnancies: 0 Date of last pap smear: 03/22/22 (+hpv) History of abnormal pap smear: Yes (07/18 +hpv 05/20 colpo lg 1) Review of Systems Const All systems reviewed & are unremarkable except as noted in HPI and below Reports as per HPI Eyes Reports no additional complaints ENT Reports no additional complaints Card Reports no additional complaints Resp Reports no additional complaints GI Reports as per HPI and Reports no additional complaints Reports as per HPI Musc Reports no additional complaints Skin/Breast Reports as per HPI Neuro Reports no additional complaints Psych Reports no additional complaints Endo Reports no additional complaints Tomasz/Lymph Reports no additional complaints Aller/Immun Reports no additional complaints Physical Exam Vital Signs: Last Vital Signs BP 100/60 04/29/24 07:50 BMI result Body Mass Index 26.9 Const General: cooperative, healthy appearing, no acute distress, well developed and alert Orientation/consciousness: patient oriented x3 HEENT Head: Yes normal to inspection Eyes General: appearance normal, both eyes and all related structures Neck Neck: Yes normal visual inspection Thyroid: Thyroid normal Chest Chest palpation & inspection: normal inspection of the chest and other (no puckering, dimpling, peau de orange, retraction, discharge, masses) Breast/axilla inspection: normal inspection of the breasts Breast/axilla palpation: normal palpation of the breasts Resp Effort & Inspection: normal respiratory effort GI Inspection: Yes normal to inspection Palpation (GI): Soft to palpation Rectal Exam - Female: deferred General: Yes bladder normal to palpation External Female Exam: normal external appearance and normal appearance of the urethra Speculum Exam - Vagina: normal appearance of the vagina, normal palpation and normal vaginal discharge Speculum Exam - Cervix: normal appearance of the cervix, normal palpation and Other cervical findings present (Bled with Pap) Bimanual exam- vagina & uterus: normal bimanual exam, normal palpation, uterine size normal, bladder normal to palpation, normal palpation and non-tender Bimanual Exam- Adnexa, other: no masses Skin General skin exam: no rashes or lesions noted Rashes: no rashes Neuro General: patient oriented x3 Cognition (Neuro): normal cognition Extrem General: Yes normal to inspection Psych Attitude: cooperative Thought process: Normal thought process present Assessment & Plan Assessment & Plan (1) Encounter for well woman exam with routine gynecological exam: Code(s): Z01.419 - Encounter for gynecological examination (general) (routine) without abnormal findings Category: Medical (2) Uterine fibroid: Code(s): D25.9 - Leiomyoma of uterus, unspecified Category: Medical Qualifiers: Uterine leiomyoma location: unspecified location Qualified Code(s): D25.9 - Leiomyoma of uterus, unspecified (3) Possible exposure to STD: Code(s): Z20.2 - Contact with and (suspected) exposure to infections with a predominantly sexual mode of transmission Plan Discussed: Current recommendations for pap smears per ASCCP guidelines. Breast awareness and periodic breast exams. Maintain a healthy lifestyle including a well balanced diet and routine exercise. Initiate vitamins or multivitamin with folic acid benefits reviewed for prevention of neural tube defects. Monitor menses if consistent under 21 days of bleeding or any unscheduled bleeding, prolonged bleeding to report to the office sooner. Fibroid general information provided w/use of diagrams today. Plan follow up ultrasound to check fibroids stability, follow up in person to discuss results and plan of care. Patient verbalizes understanding and agrees to the plan of care. She was given opportunity to ask questions and all questions were answered to the best of my ability. RTO in one year for annual clinic md associate examination. This note is constructed using voice recognition software. While every effort has been made to ensure accuracy, hearing officer errors may have been included. Orders: Orders US pelvic and transvaginal Today D25.9 - Leiomyoma of uterus, unspecified Syphilis Screen Today Z20.2 - Contact with and (suspected) exposure to infections with a predominantly sexual mode of transmission HIV Ab/Ag Today Z20.2 - Contact with and (suspected) exposure to infections with a predominantly sexual mode of transmission Hepatitis C Antibody Reflex Today Z20.2 - Contact with and (suspected) exposure to infections with a predominantly sexual mode of transmission Hepatitis B Core Antibody Today Z20.2 - Contact with and (suspected) exposure to infections with a predominantly sexual mode of transmission Coding Level of Care Code Est Pt Prev Care 18-39y(34785) Diagnoses Encounter for well woman exam with routine gynecological exam Z01.419 Uterine leiomyoma, unspecified location D25.9 Uterine leiomyoma location: unspecified location Possible exposure to STD Z20.2
[2024-04-29 07:50] VITALS: BP 100/60; BMI 26.9
== END 2024-04-29 08:24 | disposition home or self-care (01) ==
PROVIDERS: PCP Internal Medicine; Visit Provider Advanced Practice Midwife
DX: Z01.419 Encounter for gynecological examination (general) (routine) without abnormal findings (principal); D25.9 Leiomyoma of uterus, unspecified; Z20.2 Contact with and (suspected) exposure to infections with a predominantly sexual mode of transmission
CPT/HCPCS: 99395

== ENCOUNTER 2024-04-29 07:42 | Outpatient (REF) | payer OTHER, SELFPAY ==
[2024-04-29 15:18] LABS: CT PCR NOT DETECTED (Not Detect.); NG PCR NOT DETECTED (Not Detect.)
[2024-04-29 15:48] LABS: Bacterial Vaginosis PCR POSITIVE (Negative); Candida Group PCR DETECTED (Not Detect); Candida glab krusei PCR NOT DETECTED (Not Detect); Trichomonas vaginalis PCR NOT DETECTED (Not Detect)
[2024-05-03 04:19] LABS: HPV 16 RNA NOT DETECTED (NOT DETECTED); HPV mRNA E6/E7 Detected (Not Detected)
== END 2024-04-29 07:43 | disposition home or self-care (01) ==
LOC: HO.LNP 07:42
PROVIDERS: PCP Internal Medicine; Visit Provider Advanced Practice Midwife
DX: Z01.419 Encounter for gynecological examination (general) (routine) without abnormal findings (principal); D25.9 Leiomyoma of uterus, unspecified; Z20.2 Contact with and (suspected) exposure to infections with a predominantly sexual mode of transmission
CPT/HCPCS: 0352U; 87491; 87591; 87624; 87625; 88175; 99395

== ENCOUNTER 2024-04-29 08:51 | Outpatient (REF) | payer OTHER, SELFPAY | END 2024-04-29 08:52 | disposition home or self-care (01) | LOC: HO.LAB 08:51 | PROVIDERS: Visit Provider Advanced Practice Midwife | DX: Z13.89 Encounter for screening for other disorder (principal) ==

== ENCOUNTER 2024-05-08 14:39 | Outpatient (REF) | payer OTHER, SELFPAY ==
--- NOTE | ~2024-05-08 | US_ITS ---
EXAMINATION:US PELVIS TRANSABDOMINAL AND TRANSVAGINAL CLINICAL INFORMATION: D25.9 - Leiomyoma of uterus, unspecified COMPARISON: Prior ultrasound from 2022 LMP: April 30, 2024 FINDINGS: UTERUS: The uterus is anteverted. Size: 7 x 3.9 x 3.8 cm. Uterine mass: Intramural uterine masses likely fibroids measuring up to 1.6 cm, 1.7 cm, 0.6 cm, have not significantly changed from prior exam allowing for interobserver variability. Cervix: Grossly unremarkable. Endometrium: No ultrasound evidence of endometrial lesion. endometrial thickness measures 0.9 cm ADNEXA: Normal Right ovary: Normal in size. Left ovary: Normal in size. There are ovarian follicles the largest on the left probably hemorrhagic cyst or involuting follicle 1.9 cm. Doppler exam: Normal Doppler flow identified in both ovaries. FREE FLUID: Trace amount of free fluid. OTHER FINDINGS: None US/US pelvic and transvaginal IMPRESSION: 1. Redemonstration of intramural uterine masses likely fibroids, have not significantly changed allowing for interobserver variability. 2. There are left ovarian follicles the largest 1.9 cm probably involuting follicle or hemorrhagic cyst. These are commonly physiologic, no follow-up is indicated. Electronically signed by: Zach Lopez MD 06/26/2024 10:30 AM IVONNE
== END 2024-05-08 14:40 | disposition home or self-care (01) ==
LOC: HO.US 14:39
PROVIDERS: PCP Internal Medicine; Visit Provider Advanced Practice Midwife
DX: D25.9 Leiomyoma of uterus, unspecified (principal)
CPT/HCPCS: 76830; 76856

== ENCOUNTER 2024-05-27 10:18 | Outpatient (AMB) | payer OTHER, SELFPAY ==
--- NOTE | 2024-05-27 10:23 | MHC.OFFVIS ---
Vital Signs 05/27/24 10:24 Height 5 ft 2 in Weight 147 lb BMI 26.9 BP 106/60 Blood Pressure Location Lt brachial Position Sitting Intake Visit Reasons: Colposcopy Allergies No Known Allergies Allergy (Verified 05/27/24 10:27) HPI Comments Details: Presenting for colposcopy, Pap smear negative/HPV E6 E7 positive [facility] Medical History Seasonal allergies Uterine fibroid Dysplasia of cervix, low grade (LG 1) HPV (human papilloma virus) infection Migraine without aura Surgical History No pertinent past surgical history Family History Father High cholesterol Mother Type 2 diabetes mellitus Sister No problems noted. Sister No problems noted. Sister No problems noted. 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 [employer] Sexual orientation: Straight/Heterosexual Gender identity: Female Cognitive needs: No Hearing needs: No Vision needs: No Female Reproductive History Menstrual Age of Menarche: 11 Review of Systems Const All systems reviewed & are unremarkable except as noted in HPI and below Reports as per HPI and Reports no additional complaints GI Reports no additional complaints Reports no additional complaints Physical Exam Vital Signs: Last Vital Signs BP 106/60 05/27/24 10:24 BMI result Body Mass Index 26.9 Office Procedures Colposcopy Colposcopy: Pre-Procedure Counseling: Before beginning the procedure, I conducted comprehensive counseling with the patient. We thoroughly discussed the procedure itself, including its details, alternatives, and all associated risks. This included but not limited to the following complications such as bleeding, infection, and injury to the vagina, bladder, and vessels, as well as the potential need for transfusion with all its associated risks. Subsequently, the patient sign the consent. Pap smear result: Pap negative/HPV E6 E7 positive. Urine test in office = Negative Procedure: During the procedure, the following steps were performed: A speculum was inserted, and acetic acid was applied. Colposcopy was conducted, allowing visualization of the transformation zone. Acetowhite lesions were identified at the 9+12+2 o'clock position. Cervical biopsies were obtained from the 12+2 o'clock position, followed by an endocervical curettage (ECC). Vaginoscopy of the upper vagina revealed no evidence of aceto-white lesions. Hemostasis was achieved using Monsel solution, and the patient tolerated the procedure well. Post-Procedure Instructions: The patient was advised to promptly contact the office or the after hours answering service or go to the emergency room if experiencing a temperature exceeding 100.4?F, abdominal pain, nausea/vomiting, or bleeding. Additionally, the patient was instructed to abstain from vaginal intercourse and bathtub use. The patient confirmed understanding of these instructions. Discharge Instructions: The patient was instructed to schedule a follow-up appointment in 2 weeks for further evaluation and management. Please note that this note was generated using a voice recognition program, and errors may have occurred during brass buffer. [id number] of cervix including upper vagina with biopsy and ECC Procedure code (CPT) selection complete Results AMB Test Urine AMB Test Urine Negative Last Edit by Tona Cee CMA on 05/27/24 10:31 Results Reviewed Results Reviewed: Laboratory Last Values [facility] Clinic Negative 05/27/24 10:30 Assessment & Plan Assessment & Plan (1) HPV in female: Comment: Negative Pap, LG 1 in 22 Code(s): B97.7 - Papillomavirus as the cause of diseases classified elsewhere Category: Medical Plan: Discussed with the patient the result of her Pap smear/HPV positive, its significance, risk of progression, persistence, and regression. the false positive/negative rate of a Pap smear as a screening test in detecting cervical cancer and the indication for a diagnostic test -colposcopy, biopsy, endocervical curettage. The patient verbalized understanding and agreed with the plan, all questions answered. Colpo/biopsy/ECC done, see procedure note Orders: Orders AMB HCG Urine Test Today Z32.02 - Encounter for test, result negative AMB Colposcopy Today B97.7 - Papillomavirus as the cause of diseases classified elsewhere Coding Level of Care Code Procedure Only Diagnoses HPV in female B97.7 CPT Codes Colposcopy - CPT: 27409-Wffbpkhje of cervix including upper vagina with biopsy and ECC ([id number])
[2024-05-27 10:24] VITALS: BP 106/60; BMI 26.9
== END 2024-05-27 11:01 | disposition home or self-care (01) ==
LOC: HO.HWS 10:18
PROVIDERS: PCP Internal Medicine; Visit Provider Obstetrics & Gynecology
DX: Z32.02 Encounter for pregnancy test, result negative (principal); R87.810 Cervical high risk human papillomavirus (HPV) DNA test positive
CPT/HCPCS: 57454

== ENCOUNTER 2024-05-27 10:18 | Outpatient (REF) | payer OTHER, SELFPAY | END 2024-05-27 10:19 | disposition home or self-care (01) | LOC: HO.LNP 10:18 | PROVIDERS: PCP Internal Medicine; Visit Provider Obstetrics & Gynecology | DX: N72 Inflammatory disease of cervix uteri (principal); B97.7 Papillomavirus as the cause of diseases classified elsewhere; Z32.02 Encounter for pregnancy test, result negative | CPT/HCPCS: 57454; 81025; 88305 ==

== ENCOUNTER 2024-07-09 11:04 | Outpatient (AMB) | payer OTHER, SELFPAY ==
--- NOTE | 2024-07-09 11:07 | MHC.OFFVIS ---
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 She has a history of fibroids. She reports an abnormal cycle bled 2 weeks apart and notes that her cycles are approximately every 21 days, cycles are lasting 6 days. She denies any pelvic pain. Takes ibuprofen as needed p.r.n. for menstrual cramping. Using withdrawal method and is open to a future . [facility] Medical History Seasonal allergies Uterine fibroid Dysplasia of cervix, low grade (LG 1) HPV (human papilloma virus) infection Migraine without aura Surgical History No pertinent past surgical history Family History Father High cholesterol Mother Type 2 diabetes mellitus Sister No problems noted. Sister No problems noted. Sister No problems noted. 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 [employer] Sexual orientation: Straight/Heterosexual Gender identity: Female Cognitive needs: No Hearing needs: No Vision needs: No Female Reproductive History Menstrual Age of Menarche: 11 Date of last menstrual period: 07/06/24 Review of Systems Const All systems reviewed & are unremarkable except as noted in HPI and below Endo Reports no additional complaints Physical Exam Const General: cooperative, healthy appearing and no acute distress Psych Appearance: well kempt Attitude: cooperative Thought process: Normal thought process present Results Reviewed Results Reviewed: [address] [address] Ultrasound Report Signed Patient: Andrew Lewis MR#: [id number] : 1990 Acct:[id number] Age/Sex: 34 / F ADM Date: 05/08/24 Loc: . Attending Dr: Shannon Fleming CAREY Ordering Physician: Shannon Fleming CNM Date of Service: 05/08/24 Procedure(s): US pelvic and transvaginal Accession Number(s): [id number] cc: Ryann Alvares MD; Shannon Fleming CNM~ EXAMINATION:US PELVIS TRANSABDOMINAL AND TRANSVAGINAL CLINICAL INFORMATION: D25.9 - Leiomyoma of uterus, unspecified COMPARISON: Prior ultrasound from 2022 LMP: April 30, 2024 FINDINGS: UTERUS: The uterus is anteverted. Size: 7 x 3.9 x 3.8 cm. Uterine mass: Intramural uterine masses likely fibroids measuring up to 1.6 cm, 1.7 cm, 0.6 cm, have not significantly changed from prior exam allowing for interobserver variability. Cervix: Grossly unremarkable. Endometrium: No ultrasound evidence of endometrial lesion. endometrial thickness measures 0.9 cm ADNEXA: Normal Right ovary: Normal in size. Left ovary: Normal in size. There are ovarian follicles the largest on the left probably hemorrhagic cyst or involuting follicle 1.9 cm. Doppler exam: Normal Doppler flow identified in both ovaries. FREE FLUID: Trace amount of free fluid. OTHER FINDINGS: None US/US pelvic and transvaginal IMPRESSION: 1. Redemonstration of intramural uterine masses likely fibroids, have not significantly changed allowing for interobserver variability. 2. There are left ovarian follicles the largest 1.9 cm probably involuting follicle or hemorrhagic cyst. These are commonly physiologic, no follow-up is indicated. Electronically signed by: Zach Lopez MD 06/26/2024 10:30 AM [facility] [place] Dictated By: Zach Lopez MD Signed By: <Electronically signed by Zach Lopez MD in OV> 06/26/24 1030 DD/ 1500 TD/TT: 05/08/24 1513 Picture Painter: MITCH Assessment & Plan Assessment & Plan (1) Encounter to discuss test results: Code(s): Z71.2 - Person consulting for explanation of examination or test findings Category: Medical (2) Uterine fibroid: Code(s): D25.9 - Leiomyoma of uterus, unspecified Category: Medical Qualifiers: Uterine leiomyoma location: unspecified location Qualified Code(s): D25.9 - Leiomyoma of uterus, unspecified Plan Discussed: Ultrasound findings- 1. Redemonstration of intramural uterine masses likely fibroids, have not significantly changed allowing for interobserver variability. 2. There are left ovarian follicles the largest 1.9 cm probably involuting follicle or hemorrhagic cyst. These are commonly physiologic, no follow-up is indicated. Counseled re: Leiomyoma: common pelvic neoplasm. Differential diagnosis-may include but not limited to- leiomyosarcoma which is a rare uterine sarcoma 3-7/100,000, difficult to distinguish from fibroids on ultrasound from uterine sarcoma's. Unlikely any single test will have a highly positive predictive value. Hysterectomy is not recommended for sole purpose of excluding malignant neoplasm. Consult for surgical exploration, medical treatment, other treatments, verses expectant management, pros and cons, risks and benefits. Expectant management follow up in 6 months, then yearly for stability. Report any AUB, pelvic pressure, bloating, or pain. Referral to MD if indicated for level of care if indicated. Monitor menses with sosa. Start vitamins for the benefit of folic acid for the prevention of neural tube defects. Monitor menstrual cycles, report any unscheduled bleeding, heavy/prolonged menstrual bleeding. Follow up 3 months for review, or call sooner if there is any concerns. Reviewed the role of control for cycling patient declines the use of control at this time. Reviewed endometrial biopsy purpose and indications. Treatment options for fibroids, progression of fibroids in perimenopausal range. Orders: Orders Complete Blood Count no Diff Today N93.9 - Abnormal uterine and vaginal bleeding, unspecified Thyroid Stimulating Hormone Today N92.1 - Excessive and frequent menstruation with irregular cycle, N93.9 - Abnormal uterine and vaginal bleeding, unspecified Medications: New PNV,calcium 97-vqzp-iwgzq acid 27 mg iron- 1 mg ( Vitamins Plus Low Iron) 1 tab PO DAILY 90 tabs 4RF Coding Level of Care Code Est Pt Level 3 (40934) Diagnoses Encounter to discuss test results Z71.2 Uterine leiomyoma, unspecified location D25.9 Uterine leiomyoma location: unspecified location
== END 2024-07-09 12:02 | disposition home or self-care (01) ==
LOC: HO.HWS 11:04
PROVIDERS: PCP Internal Medicine; Visit Provider Advanced Practice Midwife
DX: Z71.2 Person consulting for explanation of examination or test findings (principal); D25.9 Leiomyoma of uterus, unspecified
CPT/HCPCS: 99213

== ENCOUNTER 2024-07-09 11:04 | Outpatient (REF) | payer OTHER, SELFPAY ==
[2024-07-09 13:08] LABS: Hematocrit 35.2 % (37.0-47.0); Mean Corpuscular HGB Conc 34.1 g/dl (31.0-35.0); Mean Corpuscular Hemoglobin 29.7 pg (27.0-33.0); Mean Corpuscular Volume 87.1 fL (80.0-98.0); Mean Platelet Volume 11.3 fL (9.4-12.3); Platelet Count 232 X10*3/uL (160-400); Red Blood Count 4.04 X10*6/uL (4.20-5.50); White Blood Count 5.1 X10*3/uL (4.8-10.8)
[2024-07-09 14:11] LABS: Thyroid Stimulating Hormone 0.67 uIU/mL (0.32-4.0)
[2024-07-10 07:57] LABS: Syphilis Screen Nonreactive (Nonreactive)
[2024-07-10 08:26] LABS: HBc Num1 0.08 S/CO (0.00-0.79); HIV AB/AG Nonreactive (Nonreactive); HIV Num 1 0.05 S/CO (0.00-0.99); Hepatitis B Core Antibody Nonreactive (Nonreactive); ~HepC Num1 0.08 S/CO (0.00-0.79); ~Hepatitis C Antibody Nonreactive (Nonreactive)
== END 2024-07-09 11:05 | disposition home or self-care (01) ==
LOC: HO.LAB 11:04
PROVIDERS: PCP Internal Medicine; Visit Provider Advanced Practice Midwife
DX: Z20.2 Contact with and (suspected) exposure to infections with a predominantly sexual mode of transmission (principal); N92.1 Excessive and frequent menstruation with irregular cycle; N93.9 Abnormal uterine and vaginal bleeding, unspecified; Z71.2 Person consulting for explanation of examination or test findings; D25.9 Leiomyoma of uterus, unspecified; Z11.59 Encounter for screening for other viral diseases
CPT/HCPCS: 36415; 84443; 85027; 86704; 86780; 86803; 87389; 99212